=== PATIENT | male | born 1990 | race Caucasian/White ===

== ENCOUNTER 2018-10-15 12:54 | Emergency (ER) | payer OTHER ==
[2018-10-15 13:38] VITALS: BP 130/77; PULSE 86; TEMP 99.4; BMI 23.7
[2018-10-15] MEDS ORDERED: DEXAMETHASONE LIQUID 0.5 MG/5 ML 240 ML BULK BOTTLE PO ONE (14:33)
[2018-10-15] MEDS ORDERED: DEXAMETHASONE SOD PHOSPHATE 10 MG/1 ML VIAL ONE (14:36)
--- NOTE | 2018-10-15 14:37 | PDOC ---
History of Present Illness - General Chief Complaint: Sore Throat Stated Complaint: SORE THROAT Time Seen by Provider: 10/15/18 14:29 - History of Present Illness Initial Comments: 10/15/18 14:36 27-year-old male without comorbidities presents for evaluation of sore throat 2 days without systemic symptoms. Past History - Past Medical History Allergies/Adverse Reactions: Allergies Allergy/AdvReac Type Severity Reaction Status Date / Time No Known Allergies Allergy Verified 10/15/18 13:35 Home Medications: Ambulatory Orders NK [No Known Home Medication] 10/15/18 COPD: Yes - Suicide/Smoking/Psychosocial Hx Smoking History: Current some day smoker Number of Cigarettes Smoked Daily: 4 Information on smoking cessation initiated: Yes Hx Alcohol Use: No Drug/Substance Use Hx: No Review of Systems - Review of Systems Constitutional: No: Fever HEENTM: Yes: Throat Pain, Difficulty Swallowing *Physical Exam - Vital Signs Last Vital Signs Temp Pulse Resp BP Pulse Ox 99.4 F 86 20 130/77 99 10/15/18 13:35 10/15/18 13:35 10/15/18 13:35 10/15/18 13:35 10/15/18 13:35 - Physical Exam Comments: 10/15/18 14:37 HEAD: NC/AT EYES: Conjuntiva clear Ears: Canals and TM's normal NOSE: No d/c THROAT: Moist mucous membrances, oral pharanx erythemic without exudate, uvula midline NECK: Supple anterior cervical adenopathy CARDIAC: S1 S2 LUNGS: CTA Full and Equal breath sounds ABDOMEN: Soft NT ND MS: Full ROM in all joints without edema NEUROLOGIC: No gross sensory or motor deficits, NVID SKIN: Normal color and temperature no lesions or rashes Moderate Sedation - Procedure Monitoring Vital Signs: Procedure Monitoring Vital Signs Temperature 99.4 F 10/15/18 13:35 Pulse Rate 86 10/15/18 13:35 Respiratory Rate 20 10/15/18 13:35 Blood Pressure 130/77 10/15/18 13:35 O2 Sat by Pulse Oximetry (%) 99 10/15/18 13:35 Medical Decision Making - Medical Decision Making 10/15/18 14:58 Exam showed mild erythema without exudate we'll await culture before treatment. He was treated with Decadron in the emergency room for pain. Culture was sent we will follow-up on culture no antibiotics at this time. *DC/Admit/Observation/Transfer Diagnosis at time of Disposition: Acute pharyngitis - Discharge Dispostion Disposition: HOME Condition at time of disposition: Stable Decision to Admit order: No - Referrals Referrals: Tyron Lazcano [Non Staff, Medical] - - Patient Instructions Printed Discharge Instructions: Viral Pharyngitis, DI for Viral Pharyngitis Additional Instructions: Your rapid strep test today was negative. A culture was sent. Should you require antibiotics we will call you. He may take Tylenol as directed for pain. Return to the emergency room for worsening symptoms and follow-up with the primary care physician in one to 2 days for further evaluation and treatment options. Again your rapid strep was negative should you require antibiotics we will call you based on the culture that was sent. - Post Discharge Activity
== END 2018-10-15 15:04 | disposition home or self-care (01) ==
LOC: JERFT 12:54
DX: J02.9 Acute pharyngitis, unspecified (principal); J44.9 Chronic obstructive pulmonary disease, unspecified; F17.210 Nicotine dependence, cigarettes, uncomplicated
CPT/HCPCS: 87070; 87880; 99281-25